=== PATIENT | female | born 1990 ===

== ENCOUNTER 2016-09-06 11:24 | Emergency (ER) | payer MEDICAID ==
[2016-09-06 11:44] VITALS: BMI 31.6
--- NOTE | 2016-09-06 11:44 | OBHP ---
Datetime: 09/06/2016 11:39 IP Adm Impression: , intrauterine ; No Active Labor; Intact Membranes IP Admit Plan: Observation/Evaluation; Discharge home Admit Comment, IP Provider: The patient is a 26-year-old 2 para 0 last menstrual period 1020 estimated due date 10/10/2016 estimated gestational age 35 weeks. Patient presents to labor and deli very complaining of pelvic discomfort times several hours duration. Patient denies any vaginal bleedi ng or leakage of fluid she reports good movement. Patient states her care has been unr emarkable. Past medical history none Medications vitamins Past surgical history none No known drug allergies Social history denies alcohol tobacco use care at [facility] Review of systems patient denies headache chest pain shortness of breath palpitations vaginal blee ding dysuria constipation. Cold intolerance using bruisability musculoskeletal or neurological compla ints Vital signs stable afebrile Physical exam see notes Intrauterine at 35 weeks pelvic discomfort External monitor Observation Send UA Pelvic Type - PN: Adequate Extremities - PN: Normal Abdomen - PN: Normal Back - PN: Normal Breast - PN: Normal Lungs - PN: Normal Heart - PN: Normal Thyroid - PN: Normal Neurologic - PN: Normal HEENT - PN: Normal General - PN: Normal Weight - Estimated: 6 Presentation-Admit: Vertex FHR - Baseline A Provider: 145 Gestation - Est Wks by US: 35.0 EGA AdmitDate IP: 35.1 Vital Signs Provider: Reviewed IP Chief Complaint: Maternal discomfort NICHD Variability Prov Fetus A: Moderate 6-25bpm NICHD Accel Fetus A IP Provider: 15X15 FHR Category Provider Fetus A: Category I NICHD Decel Fetus A IP Provider: None Dilatation, Provider: 0 Effacement, Provider: 0 Station, Provider: -2 Genitourinary Exam: Normal DTRs - PN: Normal
[2016-09-06 12:30] LABS: RBC URINE < 1 /hpf (0-3); URINE BACTERIA RARE (<OCC); URINE BILIRUBIN NEGATIVE (NEGATIVE); URINE BLOOD NEGATIVE (NEGATIVE); URINE COLOR COLORLESS (YELLOW); URINE GLUCOSE (UA) NEG (Normal); URINE KETONE NEGATIVE (NEGATIVE); URINE LEUKOCYTE ESTERASE NEG Leu/uL (Negative); URINE PROTEIN NEGATIVE (NEGATIVE); URINE UROBILINOGEN 0.2-1.0 mg/dL (0.2-1.0); WBC URINE < 1 /hpf (0-5)
== END 2016-09-06 13:58 | disposition home or self-care (01) ==
LOC: H.EROB2 11:24 → H.L&D 11:26 → H.EROB2 13:58
DX: O47.03 False labor before 37 completed weeks of gestation, third trimester (principal); Z3A.35 35 weeks gestation of pregnancy

== ENCOUNTER 2017-06-07 07:34 | Emergency (ER) | payer MEDICAID ==
[2017-06-07 07:43] VITALS: BP 97/63; PULSE 97; RESP 16; TEMP 98.5; O2SAT 99
[2017-06-07 07:44] VITALS: BMI 29.2
--- NOTE | 2017-06-07 08:02 | ED PDOC ---
HPI: Abdomen Time Seen by Provider: 06/07/17 07:49 Chief Complaint (Nursing): Abdominal Pain Chief Complaint (Provider): Pelvic pain History Per: Patient Onset/Duration Of Symptoms: Days (x 3) Location Of Pain/Discomfort: Diffuse Associated Symptoms: Fever, Back Pain (Lower Back Pain). denies: Nausea, Vomiting, Diarrhea Exacerbating Factors: denies: Cough Additional Complaint(s): 26 year old female with no significant medical history presents to the emergency department with complaints of pelvic pain associated with low back pain, right ear pain, 102 fever, and sore throat ongoing for 3 days. Patient states she is unsure of last menstrual period with a positive home test done 2 days ago. Did not take any meds for the fever. She reports she has a follow up appointment at clinic at the end of June. Patient denies headaches , rhinorrhea, cough, congestion, nausea, vomiting or diarrhea, dysuria, weakness. PMD: None Provided Past Medical History Reviewed: Historical Data, Nursing Documentation, Vital Signs Vital Signs: Last Vital Signs Temp 98.5 F 06/07/17 07:43 Pulse 97 H 06/07/17 07:43 Resp 16 06/07/17 07:43 BP 97/63 L 06/07/17 07:43 Pulse Ox 99 06/07/17 11:29 - Medical History PMH: No Chronic Diseases - Surgical History Surgical History: No Surg Hx - Family History Family History: States: Unknown Family Hx - Social History Current smoker - smoking cessation education provided: No Alcohol: None Drugs: Denies - Immunization History Hx Tetanus Toxoid Vaccination: No Hx Influenza Vaccination: Yes Hx Pneumococcal Vaccination: No - Home Medications Home Medications: Ambulatory Orders Medication Instructions Recorded No Known Home Med 06/07/17 - Allergies Allergies/Adverse Reactions: Allergies Allergy/AdvReac Type Severity Reaction Status Date / Time No Known Allergies Allergy Verified 08/21/15 20:27 Review of Systems ROS Statement: Except As Marked, All Systems Reviewed And Found Negative Constitutional: Positive for: Fever (Tmax of 102) ENT: Positive for: Ear Pain (right ear). Negative for: Nose Discharge, Nose Congestion Respiratory: Negative for: Cough Gastrointestinal: Negative for: Nausea, Vomiting, Diarrhea Genitourinary Female: Positive for: Pelvic Pain Musculoskeletal: Positive for: Back Pain (Lower ) Neurological: Negative for: Headache Physical Exam - Reviewed Nursing Documentation Reviewed: Yes Vital Signs Reviewed: Yes - Physical Exam Appears: Positive for: Well, Non-toxic, No Acute Distress Head Exam: Positive for: ATRAUMATIC, NORMAL INSPECTION, NORMOCEPHALIC Skin: Positive for: Normal Color Eye Exam: Positive for: Normal appearance ENT: Positive for: Normal ENT Inspection, TM Is/Are (clear bilaterally in both ) . Negative for: Pharyngeal Erythema, Tonsillar Exudate Neck: Positive for: Normal Cardiovascular/Chest: Positive for: Regular Rate, Rhythm Respiratory: Positive for: Normal Breath Sounds. Negative for: Decreased Breath Sounds, Respiratory Distress Gastrointestinal/Abdominal: Positive for: Soft, Tenderness (Mild suprapubic) Back: Positive for: Normal Inspection. Negative for: L CVA Tenderness, R CVA Tenderness Extremity: Positive for: Normal ROM (upper/lower). Negative for: Tenderness, Pedal Edema Neurologic/Psych: Positive for: Alert, cut off saw operator II-XII, Oriented - Laboratory Results Result Diagrams: 06/07/17 08:10 06/07/17 08:10 Interpretation Of Abn Labs: 14.3 wbc - ECG O2 Sat by Pulse Oximetry: 99 (RA) Pulse Ox Interpretation: Normal - CT Scan/US US Other Rad Studies (CT/US): Radiology Report Reviewed Other Rad Interpretation: IUP - Progress ED Course And Treament: 1149: Fu with obrainern. AAOx3. Pain free. Tolerated PO. Fu. Medical Decision Making Medical Decision Making: Initial Impression: Abdominal pain Initial Plan: * Type and screen * BMP * Beta-HCG * Urine * Urine dipstick * CBC * Tylenol 650mg PO * Rapid strep * Throat culture * US OB transvaginal Scribe Attestation: Documented by Arnaud Marrero, acting as a scribe for Danyel King MD. Provider Scribe Attestation: All medical record entries made by the Scribe were at my direction and personally dictated by me. I have reviewed the chart and agree that the record accurately reflects my personal performance of the history, physical exam, medical decision making, and the department course for this patient. I have also personally directed, reviewed, and agree with the discharge instructions and disposition. Disposition - Clinical Impression Clinical Impression: Threatened - Patient ED Disposition Is Patient to be Admitted: No Counseled Patient/Family Regarding: Studies Performed, Diagnosis, Need For Followup - Disposition [facility] - [facility]17 Disposition: Routine/Home Disposition Time: 11:50 Condition: FAIR Additional Instructions: Return if not better in 3 days. See the clinic in 3 days for repeat blood work to see progress. Instructions: Threatened Miscarriage Forms: [facility] (Bruneian) Print Language: INDONESIAN
[2017-06-07 08:23] LABS: BASO % 0.2 % (0.0-2.0); EOS # 0.1 K/uL (0.0-0.7); EOS % 0.5 % (0.0-4.0); HEMOGLOBIN 12.5 g/dL (12.0-16.0); MEAN CELL VOLUME 79.7 fl (81.0-99.0); MEAN CORPUSCULAR HGB CONC 32.6 g/dL (33.0-37.0); MEAN PLATELET VOLUME 8.6 fl (7.2-11.7); MONO # 0.9 K/uL (0.0-0.8); MONO % 6.2 % (0.0-10.0); NEUT # 11.3 K/uL (1.8-7.0); NEUT % 79.1 % (50.0-75.0); NRBC % 0.1 % (0.0-0.0); RBC 4.83 Mil/uL (3.80-5.20); RED CELL DISTRIBUTION WIDTH 13.9 % (11.5-14.5); WHITE BLOOD COUNT 14.3 K/uL (4.8-10.8)
[2017-06-07 08:58] LABS: BLOOD UREA NITROGEN 10 mg/dl (7-17); CALCIUM 8.6 mg/dL (8.4-10.2); GFR AFRICAN-AMERICAN > 60; GFR NON-AFRICAN AMERICAN > 60
--- NOTE | 2017-06-07 13:13 | US ---
HISTORY: with pain. COMPARISON: None available TECHNIQUE: Transvaginal sonographic evaluation of the pelvis performed FINDINGS: The uterus is anteverted measuring approximately 7.1 x 4.7 x 5.2 cm. Cervix is closed measuring 3.2 cm. Intrauterine gestation with CAPRICE internal yolk sac. There is an apparent intrauterine gestation that contains a yolk sac. . There is also small amount of fluid surrounding the gestational sac Measurements: Gestational sac: MS D = OOR Yolk sac: 2 mm pole not visualized. Recommend followup serial serum beta HCG and serial ultrasound to assess for development of viable intrauterine gestation. RIGHT OVARY: Measures 3.5 x 2.6 x 2.2 cm. No solid mass. Normal flow. There is an apparent hemorrhagic corpus luteum cyst that measures approximately 1.8 x 1.7 x 1.7 cm. LEFT OVARY: Measures 2.0 x 1.1 x 2.2 cm. No solid mass. Normal flow. FREE FLUID: No significant free fluid noted. OTHER FINDINGS: None. IMPRESSION: There is an intrauterine gestational sac that contains a small yolk sac however pole is not present. The sac size measurement is at of range - too small appropriately date. Recommend followup serial serum beta HCG and serial ultrasound to assess for development of viable intrauterine gestation. Probable hemorrhagic corpus luteum cyst right ovary
== END 2017-06-07 12:09 | disposition home or self-care (01) ==
LOC: H.ER 07:34
DX: O20.0 Threatened abortion (principal)

== ENCOUNTER 2017-07-10 12:55 | Emergency (ER) | payer MEDICAID ==
[2017-07-10 12:55] VITALS: BMI 29.2
[2017-07-10] MEDS ORDERED: Sodium Chloride 0.9% 1,000 ML IV STA (13:09)
[2017-07-10 13:51] LABS: BASO % 0.4 % (0.0-2.0); EOS # 0.1 K/uL (0.0-0.7); EOS % 0.8 % (0.0-4.0); HEMOGLOBIN 13.7 g/dL (12.0-16.0); LYMPH # 2.7 K/uL (1.0-4.3); LYMPH % 30.5 % (20.0-40.0); MEAN CORPUSCULAR HEMOGLOBIN 25.9 pg (27.0-31.0); MEAN CORPUSCULAR HGB CONC 32.9 g/dL (33.0-37.0); MEAN PLATELET VOLUME 8.8 fl (7.2-11.7); MONO # 0.6 K/uL (0.0-0.8); MONO % 7.2 % (0.0-10.0); NEUT # 5.5 K/uL (1.8-7.0); NEUT % 61.1 % (50.0-75.0); NRBC % 0.1 % (0.0-0.0); RBC 5.29 Mil/uL (3.80-5.20); RED CELL DISTRIBUTION WIDTH 13.8 % (11.5-14.5); WHITE BLOOD COUNT 8.9 K/uL (4.8-10.8)
[2017-07-10 13:53] LABS: ALB/GLOB RATIO 1.1 (1.0-2.1); ALBUMIN 4.3 g/dL (3.5-5.0); ALT/SGPT 34 U/L (9-52); AST/SGOT 24 U/L (14-36); BLOOD UREA NITROGEN 11 mg/dl (7-17); CALCIUM 9.2 mg/dL (8.4-10.2); GFR AFRICAN-AMERICAN > 60; GFR NON-AFRICAN AMERICAN > 60
[2017-07-10 14:01] LABS: PARTIAL THROMBOPLASTIN TIME 29.6 Seconds (25.6-37.1)
--- NOTE | 2017-07-10 16:35 | ED PDOC ---
HPI: Female Pain Time Seen by Provider: 07/10/17 13:09 Chief Complaint (Nursing): Female Genitourinary Chief Complaint (Provider): vaginal bleeding History Per: Combination Operator (Dr Hopper) History/Exam Limitations: no limitations Onset/Duration Of Symptoms: Hrs (1) Current Symptoms Are (Timing): Still Present Severity: Severe Quality Of Discomfort: Cramping Associated Symptoms: Loss Of Appetite. denies: Nausea, Vomiting, Diarrhea Alleviating Factors: None Additional Complaint(s): 26yo female states approximately 6 weeks , had mild vaginal bleeding, [facility] and told no HR, today pain developed with brisk vaginal bleeding. No syncope, weakness or dizziness. Pain sharp/crampy, patient tearful. Past Medical History Reviewed: Historical Data, Nursing Documentation, Vital Signs Vital Signs: Last Vital Signs Temp 97.0 F L 07/10/17 12:57 Pulse 100 H 07/10/17 12:57 Resp 16 07/10/17 12:57 BP 115/79 07/10/17 12:57 Pulse Ox 100 07/10/17 12:57 - Medical History PMH: No Chronic Diseases Other PMH: one prior spont - Family History Family History: States: Unknown Family Hx - Living Arrangements Living Arrangements: With Family - Social History Current smoker - smoking cessation education provided: No - Immunization History Hx Tetanus Toxoid Vaccination: No Hx Influenza Vaccination: Yes Hx Pneumococcal Vaccination: No - Home Medications Home Medications: Ambulatory Orders Medication Instructions Recorded Naproxen [Naprosyn] 500 mg PO BID PRN #14 tablet 07/10/17 oxyCODONE/Acetaminophen [Percocet 1 ea PO TID PRN #6 tab 07/10/17 5/325 mg Tab] - Allergies Allergies/Adverse Reactions: Allergies Allergy/AdvReac Type Severity Reaction Status Date / Time No Known Allergies Allergy Verified 07/10/17 12:57 Review of Systems Constitutional: Negative for: Fever ENT: Negative for: Throat Pain Cardiovascular: Negative for: Chest Pain Respiratory: Negative for: Cough Gastrointestinal: Positive for: Abdominal Pain. Negative for: Vomiting, Diarrhea Genitourinary Female: Positive for: Vaginal Bleeding, Pelvic Pain. Negative for : Dysuria, Vaginal Discharge Musculoskeletal: Negative for: Neck Pain Physical Exam - Reviewed Nursing Documentation Reviewed: Yes Vital Signs Reviewed: Yes - Physical Exam Appears: Positive for: Uncomfortable Head Exam: Positive for: ATRAUMATIC, NORMAL INSPECTION, NORMOCEPHALIC Skin: Positive for: Normal Color, Warm, DRY Eye Exam: Positive for: EOMI, Normal appearance, PERRL ENT: Positive for: Normal ENT Inspection Neck: Positive for: Normal, Painless ROM Cardiovascular/Chest: Positive for: Regular Rate, Rhythm Respiratory: Positive for: CNT, Normal Breath Sounds Gastrointestinal/Abdominal: Positive for: Soft, Tenderness (mild pelvic tenderness b/l) Pelvic Exam: Positive for: External Exam Normal, Blood, Other (tissue in vaginal vault) Back: Positive for: Normal Inspection Extremity: Positive for: Normal ROM Neurologic/Psych: Positive for: Alert, Oriented. Negative for: Motor/Sensory Deficits - Laboratory Results Result Diagrams: 07/10/17 17:42 07/10/17 13:39 - ECG O2 Sat by Pulse Oximetry: 100 Pulse Ox Interpretation: Normal Medical Decision Making Medical Decision Making: HCG 5500 Hgb stable from prior IVF bolus ordered Labs reviewed Hgb normal US reveals likely inevitable repeat Hgb 13.7 --> 12.5 640p re-eval mild bleeding, feels somewhat dizzy. Endorsed Dr Lechuga pending re-eval and dispo Accession No. : [id number] Patient Name / ID : EDWINA MENON / [id number] Exam Date : 07/10/2017 18:51:25 ( Approved ) Study Comment : Sex / Age : F / 26Y Creator : Ajay Torres MD Dictator : Ajay Torres MD Printing Agent : Acls Nurse : Ajay Torres MD Approver2 : Report Date : 07/10/2017 18:51:03 My Comment : HISTORY: approx 7 wks , bleeding w pain ; prior LMP 05/11/2017 suggesting estimated gestational age of 8 weeks 4 days. COMPARISON: Transvaginal obstetric ultrasound 06/07/2017. TECHNIQUE: Transvaginal obstetric ultrasound was performed with longitudinal and transverse images submitted for interpretation. FINDINGS: UTERUS: Measures 8.3 x 4.4 x 4.1 cm. A gestational sac is identified within a retroverted uterus in the lower uterine segment/endocervical canal with pole identified. There is no cardiac activity detectable within the pole. Mean crown-rump length measurement is 5.9 mm corresponding to an average ultrasonic age of 6 weeks 3 days with mean sac diameter of 2.2 cm correspond to 6 weeks 6 days. This is discrepant from a week 4 day LMP derived dates. Location of gestation suggest failure and inevitable . ENDOMETRIUM: As above. CERVIX: As above. No soft tissue mass seen related to intrinsic cervix soft tissue. RIGHT OVARY: Measures 2.7 x 2.3 x 2.1 cm. No solid mass. Normal flow. LEFT OVARY: Not identified. No suspicious adnexal mass or fluid collection appreciable. FREE FLUID: No significant free fluid noted. OTHER FINDINGS: None. IMPRESSION: Findings most compatible with a 6 week 6 day intrauterine gestation, approximately, discrepant from LMP derived dates as per above, with no cardiac activity suggesting inevitable . Gestational sac is lower uterine segment endometrial cavity /endocervical canal region at this time. Additional details above. Disposition - Clinical Impression Clinical Impression: Incomplete - Patient ED Disposition Is Patient to be Admitted: Transfer of Care Counseled Patient/Family Regarding: Studies Performed, Diagnosis, Need For Followup - Disposition Referrals: [facility] [Outside] Disposition: Transfer of Care Disposition Time: 18:49 Condition: STABLE Additional Instructions: Return to ER for any weakness, pain, worse bleeding or any concern. Take pain medications as directed. Prescriptions: Naproxen [Naprosyn] 500 mg PO BID PRN #14 tablet PRN Reason: Pain, Moderate (4-7) oxyCODONE/Acetaminophen [Percocet 5/325 mg Tab] 1 ea PO TID PRN #6 tab PRN Reason: Pain, Severe (8-10) Instructions: Dealing With Miscarriage, Miscarriage (DC) Forms: [employer] (Panamanian) Print Language: ALBANIAN Patient Signed Over To: Thierno Lechuga Handoff Comments: pending re-eval
[2017-07-10 17:52] LABS: HEMOGLOBIN 12.5 g/dL (12.0-16.0); MEAN CELL VOLUME 79.8 fl (81.0-99.0); MEAN CORPUSCULAR HEMOGLOBIN 25.9 pg (27.0-31.0); MEAN CORPUSCULAR HGB CONC 32.5 g/dL (33.0-37.0); RBC 4.82 Mil/uL (3.80-5.20); RED CELL DISTRIBUTION WIDTH 13.6 % (11.5-14.5); WHITE BLOOD COUNT 9.2 K/uL (4.8-10.8)
--- NOTE | 2017-07-10 18:52 | US ---
HISTORY: approx 7 wks , bleeding w pain ; prior LMP 05/11/2017 suggesting estimated gestational age of 8 weeks 4 days. COMPARISON: Transvaginal obstetric ultrasound 06/07/2017. TECHNIQUE: Transvaginal obstetric ultrasound was performed with longitudinal and transverse images submitted for interpretation. FINDINGS: UTERUS: Measures 8.3 x 4.4 x 4.1 cm. A gestational sac is identified within a retroverted uterus in the lower uterine segment/endocervical canal with pole identified. There is no cardiac activity detectable within the pole. Mean crown-rump length measurement is 5.9 mm corresponding to an average ultrasonic age of 6 weeks 3 days with mean sac diameter of 2.2 cm correspond to 6 weeks 6 days. This is discrepant from a week 4 day LMP derived dates. Location of gestation suggest failure and inevitable . ENDOMETRIUM: As above. CERVIX: As above. No soft tissue mass seen related to intrinsic cervix soft tissue. RIGHT OVARY: Measures 2.7 x 2.3 x 2.1 cm. No solid mass. Normal flow. LEFT OVARY: Not identified. No suspicious adnexal mass or fluid collection appreciable. FREE FLUID: No significant free fluid noted. OTHER FINDINGS: None. IMPRESSION: Findings most compatible with a 6 week 6 day intrauterine gestation, approximately, discrepant from LMP derived dates as per above, with no cardiac activity suggesting inevitable . Gestational sac is lower uterine segment endometrial cavity /endocervical canal region at this time. Additional details above.
[2017-07-11 03:35] VITALS: BP 104/54; PULSE 73; RESP 16; TEMP 98.2; O2SAT 98
== END 2017-07-10 20:00 | disposition home or self-care (01) ==
LOC: H.ER 12:55
DX: O03.4 Incomplete spontaneous abortion without complication (principal); Z3A.01 Less than 8 weeks gestation of pregnancy
CPT/HCPCS: 76817; 80053; 84702; 85025; 85027; 85610; 85730; 86850; 86900; 88305; 96361; 96374; 96375; 96376; 99285; J1885; J2270; J7040

== ENCOUNTER 2018-05-22 09:30 | Emergency (ER) | payer MEDICAID ==
[2018-05-22 09:47] VITALS: O2SAT 99; BMI 31.6
--- NOTE | 2018-05-22 11:38 | ED PDOC ---
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 Denies fever, nausea, vomiting, constipation, diarrhea, dysuria, hematuria, vaginal bleeding/discharge. Past Medical History Reviewed: Nursing Documentation, Vital Signs Vital Signs: Last Vital Signs Temp 98.3 F 05/22/18 09:47 Pulse 68 05/22/18 09:47 Resp 16 05/22/18 09:47 BP 105/68 05/22/18 09:47 Pulse Ox 99 05/22/18 09:47 - Medical History PMH: No Chronic Diseases - Family History Family History: States: Unknown Family Hx - Living Arrangements Living Arrangements: With Family - Social History Current smoker - smoking cessation education provided: No Alcohol: None - Immunization History Hx Tetanus Toxoid Vaccination: No Hx Influenza Vaccination: Yes Hx Pneumococcal Vaccination: No - Home Medications Home Medications: Ambulatory Orders Medication Instructions Recorded Naproxen [Naprosyn] 500 mg PO BID PRN #14 tablet 07/10/17 oxyCODONE/Acetaminophen [Percocet 1 ea PO TID PRN #6 tab 07/10/17 5/325 mg Tab] Ibuprofen [Motrin] 600 mg PO Q6H PRN #20 tab 05/22/18 - Allergies Allergies/Adverse Reactions: Allergies Allergy/AdvReac Type Severity Reaction Status Date / Time No Known Allergies Allergy Verified 07/10/17 12:57 Review of Systems Constitutional: Negative for: Fever, Chills Cardiovascular: Negative for: Chest Pain Respiratory: Negative for: Cough Gastrointestinal: Positive for: Abdominal Pain. Negative for: Nausea, Vomiting, Diarrhea Genitourinary Female: Negative for: Dysuria, Hematuria, Vaginal Discharge, Vaginal Bleeding Musculoskeletal: Positive for: Back Pain. Negative for: Neck Pain Skin: Negative for: Rash, Lesions Neurological: Negative for: Headache Physical Exam - Reviewed Nursing Documentation Reviewed: Yes Vital Signs Reviewed: Yes - Physical Exam Appears: Positive for: Well, No Acute Distress Skin: Positive for: Normal Color, Warm, Dry Eye Exam: Positive for: Normal appearance, EOMI, PERRL Cardiovascular/Chest: Positive for: Regular Rate, Rhythm Respiratory: Positive for: Normal Breath Sounds Gastrointestinal/Abdominal: Positive for: Bowel Sounds, Soft, Tenderness (Minimal BLQ). Negative for: Guarding, Rebound Back: Positive for: Normal Inspection. Negative for: L CVA Tenderness, R CVA Tenderness Extremity: Positive for: Normal ROM Neurological/Psych: Positive for: Awake, Alert - ECG O2 Sat by Pulse Oximetry: 99 Medical Decision Making Medical Decision Makin yo female with low back pain and abdominal pain. - UA - pelvic ultrasound - Motrin Accession No. : [id number] Patient Name / ID : EDWINA MENON / [id number] Exam Date : 05/22/2018 12:44:10 ( Approved ) Study Comment : Sex / Age : F / 27Y Creator : Beck Swift MD Dictator : Beck Swift MD Supervisor Laundry : Supervisor Cereal : Beck Swift MD Approver2 : Report Date : 05/22/2018 15:09:54 My Comment : This report is currently processing and HAS NOT BEEN OFFICIALLY SIGNED BY THE PHYSICIAN - ESTIMATED TIME OF APPROVAL IS 05/22/2018 15:15. Date of service: 05/22/2018 HISTORY: Lower abd pain COMPARISON: None available. TECHNIQUE: Transabdominal sonographic evaluation of the pelvis performed. Comparison made with prior study dated 07/10/2017. FINDINGS: UTERUS: Measures 7.1 x 3.2 x 4.9 cm. Anteverted normal in size and appearance. No fibroid or other mass lesion seen. ENDOMETRIUM: Measures 4.4 mm in diameter. Unremarkable. CERVIX: No cervical abnormality identified. RIGHT OVARY: Measures 2.1 x 1.5 x 2.5 cm. No solid mass. Normal flow. LEFT OVARY: Measures 2.6 x 1.2 x 2.4 cm. No solid mass. Normal flow. FREE FLUID: No significant free fluid noted. OTHER FINDINGS: None. IMPRESSION: Unremarkable pelvic ultrasound. Disposition - Clinical Impression Clinical Impression: Abdominal pain in female - Disposition Referrals: Mike Vanegas [Medical Doctor] - Disposition: Routine/Home Disposition Time: 15:14 Condition: IMPROVED Prescriptions: Ibuprofen [Motrin] 600 mg PO Q6H PRN #20 tab PRN Reason: Pain, Moderate (4-7) Instructions: Acute Abdomen (Belly Pain) Forms: [employer] (Swedish) Print Language: TURKMEN
[2018-05-22 11:46] LABS: SQUAMOUS EPITHIAL 10 /hpf (0-5); URINE BILIRUBIN NEGATIVE (NEGATIVE); URINE BLOOD NEGATIVE (NEGATIVE); URINE CLARITY SLIGHTY-CLOUDY (Clear); URINE COLOR YELLOW (YELLOW); URINE GLUCOSE (UA) NEG (NEGATIVE); URINE LEUKOCYTE ESTERASE NEG Leu/uL (Negative); URINE PROTEIN NEGATIVE (NEGATIVE); URINE UROBILINOGEN 0.2-1.0 mg/dL (0.2-1.0)
--- NOTE | 2018-05-22 15:14 | US ---
Date of service: 05/22/2018 HISTORY: Lower abd pain COMPARISON: None available. TECHNIQUE: Transabdominal sonographic evaluation of the pelvis performed. Comparison made with prior study dated 07/10/2017. FINDINGS: UTERUS: Measures 7.1 x 3.2 x 4.9 cm. Anteverted normal in size and appearance. No fibroid or other mass lesion seen. ENDOMETRIUM: Measures 4.4 mm in diameter. Unremarkable. CERVIX: No cervical abnormality identified. RIGHT OVARY: Measures 2.1 x 1.5 x 2.5 cm. No solid mass. Normal flow. LEFT OVARY: Measures 2.6 x 1.2 x 2.4 cm. No solid mass. Normal flow. FREE FLUID: No significant free fluid noted. OTHER FINDINGS: None. IMPRESSION: Unremarkable pelvic ultrasound.
[2018-05-22 15:36] VITALS: BP 118/76; PULSE 76; RESP 18; TEMP 98
== END 2018-05-22 15:35 | disposition home or self-care (01) ==
LOC: H.ER 09:30
DX: R10.2 Pelvic and perineal pain (principal)

== ENCOUNTER 2018-07-04 18:20 | Emergency (ER) | payer MEDICAID ==
[2018-07-04 18:20] VITALS: BMI 31.6
--- NOTE | 2018-07-04 19:16 | ED PDOC ---
HPI: Abdomen Time Seen by Provider: 07/04/18 19:03 Chief Complaint (Nursing): Abdominal Pain Chief Complaint (Provider): Abdominal Pain History Per: Patient, Family () History/Exam Limitations: no limitations Onset/Duration Of Symptoms: Intermittent Episodes (x6 days) Current Symptoms Are (Timing): Still Present Additional Complaint(s): 27 year old female with no significant medical history, arrives to the emergency department with at bedside for an evaluation of intermittent, upper abdominal pain associated with nonbloody diarrhea, vomiting, and decreased appetite for 6 days. Patient has been on weight loss treatment for 3 months and ingested empanadas with cheese upon onset of symptoms which has progressively worsen. Last dose was on 06/30/18. Otherwise, she denies any fever or chills. PCP: Dr. Abhinav Gaines Past Medical History Reviewed: Historical Data, Nursing Documentation, Vital Signs Vital Signs: Last Vital Signs Temp 98.7 F 07/04/18 18:37 Pulse 84 07/04/18 18:37 Resp 16 07/04/18 18:37 BP 111/69 07/04/18 18:37 Pulse Ox 100 07/04/18 18:37 - Medical History PMH: No Chronic Diseases - Surgical History Surgical History: No Surg Hx - Family History Family History: States: Unknown Family Hx - Immunization History Hx Tetanus Toxoid Vaccination: No Hx Influenza Vaccination: Yes Hx Pneumococcal Vaccination: No - Home Medications Home Medications: Ambulatory Orders Medication Instructions Recorded Naproxen [Naprosyn] 500 mg PO BID PRN #14 tablet 07/10/17 oxyCODONE/Acetaminophen [Percocet 1 ea PO TID PRN #6 tab 07/10/17 5/325 mg Tab] Ibuprofen [Motrin] 600 mg PO Q6H PRN #20 tab 05/22/18 Dicyclomine [Dicyclomine HCl] 10 mg PO TID #15 cap 07/04/18 Ondansetron ODT [Zofran ODT] 4 mg PO Q8 PRN #12 odt 07/04/18 - Allergies Allergies/Adverse Reactions: Allergies Allergy/AdvReac Type Severity Reaction Status Date / Time No Known Allergies Allergy Verified 07/10/17 12:57 Review of Systems ROS Statement: Except As Marked, All Systems Reviewed And Found Negative Constitutional: Positive for: Weight loss (intentional). Negative for: Fever, Chills Gastrointestinal: Positive for: Vomiting, Abdominal Pain (upper), Diarrhea, Other (decreased appetite) Physical Exam - Reviewed Nursing Documentation Reviewed: Yes Vital Signs Reviewed: Yes - Physical Exam Appears: Positive for: Uncomfortable Head Exam: Positive for: ATRAUMATIC, NORMAL INSPECTION, NORMOCEPHALIC Skin: Positive for: Normal Color Eye Exam: Positive for: Normal appearance, EOMI, PERRL ENT: Positive for: Normal ENT Inspection. Negative for: Pharyngeal Erythema Neck: Positive for: Normal, Supple Cardiovascular/Chest: Positive for: Regular Rate, Rhythm Respiratory: Positive for: Normal Breath Sounds. Negative for: Respiratory Distress Pulses-Radial (L): 2+ Pulses-Radial (R): 2+ Gastrointestinal/Abdominal: Positive for: Soft, Tenderness (epigastric) Neurological/Psych: Positive for: Awake, Alert, Symmetric/Intact Strength, Oriented (x3). Negative for: Motor/Sensory Deficits - Laboratory Results Result Diagrams: 07/04/18 20:29 07/04/18 20:29 Urine POC: Negative - ECG O2 Sat by Pulse Oximetry: 100 (RA) Pulse Ox Interpretation: Normal Medical Decision Making Medical Decision Making: Initial Impression: abdominal pain, vomiting, diarrhea Differential diagnosis: acute gastroenteritis; acute pancreatitis. rule out biliary disease. Initial Plan: * Labs * Bentyl PO * IV fluids * Zofran IVP * US gallbladder Time: 2032 --US gallbladder FINDINGS: LIVER: There is hepatomegaly. The liver measured 19.2 cm in the midclavicular line. T here is increased echogenicity noted compatible with steatosis. No mass. GALLBLADDER: The gallbladder appears within normal limits. No gallbladder wall thickening or pericholecystic fluid. COMMON BILE DUCT: No dilation. normal caliber measuring 4.2 mm. PANCREAS: The distal pancreas is obscured by bowel gas. The visualized portion of the pancreas appears within normal limits. RIGHT KIDNEY: Unremarkable. Normal renal contours. No renal mass or calculus. No hydronephrosis. IMPRESSION: 1. Hepatomegaly with diffuse hepatic steatosis Time: 2049 --Labs reviewed: elevated ALP - already evaluated with US. Otherwise, (-) significant abnormalities. Pending re-eval after PO challenge. Time: 2144 --Upon provider reevaluation, patient is medically stable, reports improvement in symptoms, and tolerating PO well. Patient will be discharged home with Rx for dicyclomine HCL and Zofran ODT. Counseling was provided and all questions were answered regarding diagnosis. There is agreement to discharge plan. Return precautions discussed. Clinical Impression: vomiting and diarrhea; abdominal pain Scribe Attestation: Documented by Madhuri Gonzalez, acting as a scribe for Titus Cedillo MD. Provider Scribe Attestation: All medical record entries made by the Scribe were at my direction and personally dictated by me. I have reviewed the chart and agree that the record accurately reflects my personal performance of the history, physical exam, medical decision making, and the department course for this patient. I have also personally directed, reviewed, and agree with the discharge instructions and disposition. Disposition - Clinical Impression Clinical Impression: Vomiting and diarrhea, Abdominal pain - Patient ED Disposition Is Patient to be Admitted: No Doctor Will See Patient In The: Office Counseled Patient/Family Regarding: Studies Performed, Diagnosis, Rx Given - Disposition Disposition: Routine/Home Disposition Time: 21:45 Condition: IMPROVED Additional Instructions: [facility]YNSE[facility] [employer], thank you for letting us take care of you today. Your provider was Titus Cedillo MD and you were treated for ABD PAIN. The [facility] medical care you received today was directed at your acute symptoms. If you were prescribed any medication, please fill it and take as directed. It may take several days for your symptoms to resolve. Return to the Emergency Department if your symptoms worsen, do not improve, or if you have any other problems. Please contact your doctor or call one of the physicians/clinics you have been referred to that are listed on the Patient Visit Information form that is included in your discharge packet. Bring any paperwork you were given at discharge with you along with any medications you are taking to your follow up visit. Our treatment cannot replace ongoing medical care by a primary care gay eason outside of the emergency department. Thank you for allowing the [facility] team to be part of your care today. If you had an X-Ray or CT scan: A Radiologist will review the ED reading if any change in treatment is needed we will contact you. If you had a blood, urine, or wound culture: It will take several days for the results, if any change in treatment is needed we will contact you. Prescriptions: Dicyclomine [Dicyclomine HCl] 10 mg PO TID #15 cap Ondansetron ODT [Zofran ODT] 4 mg PO Q8 PRN #12 odt PRN Reason: Nausea/Vomiting Instructions: Diarrhea in Adolescents and Adults, Stomach Ache and Stomach Upset Forms: Pressable (Greenlandic) Print Language: GERMAN
[2018-07-04] MEDS ORDERED: Sodium Chloride 0.9% 1,000 ML IV STA (19:18)
[2018-07-04 20:36] LABS: BASO % 0.5 % (0.0-2.0); EOS # 0.1 K/uL (0.0-0.7); EOS % 1.1 % (0.0-4.0); HEMOGLOBIN 13.3 g/dL (12.0-16.0); LYMPH # 1.7 K/uL (1.0-4.3); LYMPH % 27.1 % (20.0-40.0); MEAN CELL VOLUME 79.3 fl (81.0-99.0); MEAN CORPUSCULAR HEMOGLOBIN 26.1 pg (27.0-31.0); MEAN CORPUSCULAR HGB CONC 32.9 g/dL (33.0-37.0); MEAN PLATELET VOLUME 9.1 fl (7.2-11.7); MONO # 0.8 K/uL (0.0-0.8); MONO % 11.8 % (0.0-10.0); NEUT # 3.8 K/uL (1.8-7.0); NEUT % 59.5 % (50.0-75.0); NRBC % 0.1 % (0.0-0.0); RBC 5.1 Mil/uL (3.80-5.20); RED CELL DISTRIBUTION WIDTH 13.4 % (11.5-14.5); WHITE BLOOD COUNT 6.4 K/uL (4.8-10.8)
[2018-07-04 20:45] LABS: ALB/GLOB RATIO 1.2 (1.0-2.1); ALBUMIN 4.2 g/dL (3.5-5.0); ALT/SGPT 40 U/L (9-52); AST/SGOT 30 U/L (14-36); BLOOD UREA NITROGEN 6 mg/dl (7-17); CALCIUM 8.9 mg/dL (8.4-10.2); GFR NON-AFRICAN AMERICAN > 60; LIPASE 58 U/L (23-300)
[2018-07-04 22:23] VITALS: BP 109/53; PULSE 75; RESP 14; TEMP 98.9; O2SAT 98
--- NOTE | 2018-07-05 08:21 | US ---
Date of service: 07/04/2018 HISTORY: epigastric pain COMPARISON: None. TECHNIQUE: Sonographic evaluation of the right upper quadrant of the abdomen. FINDINGS: LIVER: Measures 18-19 cm in length. Overall increased echogenicity of the liver parenchyma. No mass. No intrahepatic bile duct dilatation. GALLBLADDER: Unremarkable. No gallstones. COMMON BILE DUCT: Measures 4 mm. No stones. No dilatation. PANCREAS: Unremarkable as visualized. No mass. No ductal dilatation. RIGHT KIDNEY: Measures 11.5 cm in length. Normal echogenicity. No calculus, mass, or hydronephrosis. AORTA: No aneurysmal dilatation. IVC: Limited by bowel gas but appear to be within normal limits. Hepatic veins were within normal limits and patent. OTHER FINDINGS: None . IMPRESSION: Enlarged fatty liver. No evidence of acute cholecystitis.
== END 2018-07-04 22:05 | disposition home or self-care (01) ==
LOC: H.ER 18:20
DX: R10.9 Unspecified abdominal pain (principal); R11.10 Vomiting, unspecified; R19.7 Diarrhea, unspecified; K76.0 Fatty (change of) liver, not elsewhere classified
CPT/HCPCS: 76705; 80053; 81025; 83690; 85025; 96361; 96374; 99285; J2405; J7030